=== PATIENT | female | born 2000 | race Caucasian/White ===

== ENCOUNTER 2021-02-17 16:11 | Emergency (ER) | payer OTHER, SELFPAY ==
--- NOTE | ~2021-02-17 | CT_ITS ---
EXAMINATION: CT soft tissue neck w con DATE: 02/17/2021 19:04 INDICATION: Sore throat with erythema and edema. Assess for peritonsillar abscess. TECHNIQUE: Computed tomography (CT) of the neck was performed with 75 mL Omnipaque-350 intravenous co ntrast. Automated exposure control and iterative reconstruction technique were employed. The dose-israel gth product was 255.81 mGy-cm. COMPARISON: None FINDINGS: There is asymmetric swelling of the right palatine tonsil and to lesser degree right lingual tonsil. There is decreased attenuation consistent with likely phlegmonous change without a well-defined small peripheral enhancement to suggest a more organized abscess. Airway remains patent. Normal epiglottis and aryepiglottic folds. The retropharyngeal soft tissues also remain normal. The orbits, paranasal sinuses and mastoid air cells are normal. There is an enlarged right level 2 jugular chain lymph node measuring 1.3 cm in maximal diameter which is likely reactive. Remaining cervical lymph nodes remain within normal limits. Bilateral parotid and submandibular glands are normal and symmetric. Thyroid i s unremarkable. The visualized vasculature of the neck is normal. Superior mediastinum is normal. Vis ualized apices of lungs are clear. Bones are unremarkable. IMPRESSION: 1. Enlargement of the right palatine and lingual tonsils with regions of decreased density likely rep resenting phlegmonous change in the setting of tonsillitis but without an as yet organized peripheral ly enhancing abscess. Reviewed, dictated and finalized at location A. CATED DRIVER IMPRESSION: 1. Enlargement of the right palatine and lingual tonsils with regions of decrea sed density likely representing phlegmonous change in the setting of tonsilliti s but without an as yet organized peripherally enhancing abscess.
[2021-02-17 16:20] VITALS: BP 109/66; PULSE 97; RESP 18; TEMP 36.9; O2SAT 100
[2021-02-17 18:10] VITALS: BP 107/73; PULSE 94; RESP 18; O2SAT 98
--- NOTE | 2021-02-17 18:12 | ED.SKABFB ---
HPI - Skin/Abscess/Foreign Bdy General Chief complaint: Skin/Abscess/Foreign Body Stated complaint: SORE THROAT Time Seen by Provider: 02/17/21 18:05 Source: patient Mode of arrival: ambulatory Limitations: no limitations History of Present Illness HPI narrative: This is a 20-year-old female that presents to the emergency department for sore throat since yesterday. Reports redness and swelling on the right side of her throat. Reports twice recently she has had to have a peritonsillar abscess drained. Initially she finished a round of Augmentin. Most recently she has been on clindamycin. Denies fever. Related Data Home Medications Medication Instructions Recorded Confirmed norethindrone (contraceptive) mg 02/17/21 Allergies Allergy/AdvReac Type Severity Reaction Status Date / Time No Known Allergies Allergy Verified 02/17/21 18:11 Review of Systems Review of Systems: CONSTITUTIONAL: Denies fever ENT: Reports sore throat RESPIRATORY: Denies dyspnea. All systems reviewed & are unremarkable except as noted in HPI and below PMFSH Past Medical History Medical History (Updated 02/17/21 @ 20:42 by Mary Kate Pulliam PA-C) No active medical problems Social History Social History (Updated 02/17/21 @ 18:15 by Mary Kate Pulliam PA-C) Smoking status: Never smoker Exam Narrative: GENERAL: Well-appearing, well-nourished, and in no acute distress. HEAD: Normocephalic, atraumatic. EYES: EOMI. ENT: Nares clear, no rhinorrhea or epistaxis. Mucous membranes moist. Oropharynx with asymmetric (R>L) tonsillar hypertrophy, no exudate or other lesions. Uvula midline. No trismus. Bilateral TMs pearly prater non-bulging NECK: Supple. Tender right-sided anterior cervical adenopathy CHEST: Clear to auscultation. No respiratory distress. No wheezes rales or rhonchi HEART: Regular rate and rhythm. No murmur heard. Normal peripheral pulses. EXTREMITIES: Normal range of motion. No edema. SKIN: Warm, dry, no rash. NEURO: No focal deficits. Alert and oriented x3. PSYCH: Normal mood and affect Course Consultations Consultation #1: Spoke with Dr. Bucio about patient and work-up. Would like patient started on clindamycin will follow up in clinic tomorrow Date: 02/17/21 Time: 20:00 Vital Signs Vital signs: Vital Signs Temperature 98.4 F 02/17/21 16:20 Pulse Rate 97 02/17/21 16:20 Respiratory Rate 18 02/17/21 16:20 Blood Pressure 109/66 02/17/21 16:20 Pulse Oximetry 100 02/17/21 16:20 Temperature 98.0 F 02/17/21 19:49 Pulse Rate 90 02/17/21 19:49 Respiratory Rate 16 02/17/21 19:49 Blood Pressure 108/72 02/17/21 19:49 Pulse Oximetry 98 02/17/21 19:49 MDM - Skin/Abscess/Foreign Bdy MDM Narrative Medical decision making narrative: Patient presents to the emergency department for sore throat since yesterday. History of recent multiple peritonsillar abscesses. She is afebrile and nontoxic-appearing. She does have asymmetric swelling of her tonsils. Uvula is midline. There is no trismus. CBC with leukocytosis to 13.1. Inflammatory markers are mildly elevated. CT scan soft tissue neck shows enlargement of the right [place] and lingual tonsils with regions of decreased density likely representing phlegmonous change, in the setting of tonsillitis without an yet organized peripherally enhancing abscess. Patient given a dose of antibiotics IV. Spoke with Dr. Bucio about patient and work-up. Would like patient started on clindamycin will follow up in clinic tomorrow. Patient is stable and felt appropriate for further outpatient evaluation. She was given warnings to return to the ER Lab Data Attestation: I reviewed the patient's lab results. Result diagrams: 02/17/21 18:24 02/17/21 18:24 Labs: Lab Results 02/17/21 02/17/21 Range/Units 18:24 18:24 WBC 13.1 H (4.5-10.0) K/mm3 RBC 3.73 L (4.2-5.4) M/mm3 Hgb 12.0 (12.0-15.0) g/dL Hct 35.
[2021-02-17 18:30] LABS: Basophils Percent Auto 0.3 % (0.2-1.2); Eosinophils Percent Auto 0.3 % (0-4.4); Hematocrit 35.8 % (37.0-47.0); Immature Granulocyte Absolute 0.04 K/mm3 (0.00-0.031); Immature Granulocyte Percent A 0.3 % (0-0.5); Lymphocytes Absolute Auto 1.21 K/mm3 (0.9-3.2); Lymphocytes Percent Auto 9.3 % (18.3-44.2); Mean Corpuscular HGB Conc 33.5 g/dl (32-36); Mean Corpuscular Hemoglobin 32.2 pg (26-34); Mean Platelet Volume 9.7 fl (7.4-10.4); Monocytes Absolute Auto 1.1 K/mm3 (0.1-0.6); Monocytes Percent Auto 8.6 % (2.6-8.5); Neutrophils Absolute Auto 10.6 K/mm3 (1.3-6.7); Neutrophils Percent Auto 81.2 % (45.5-73.1); Platelet Count Result 202 k/mm3 (150-375); Red Blood Count 3.73 M/mm3 (4.2-5.4); White Blood Count 13.1 K/mm3 (4.5-10.0)
[2021-02-17 18:44] LABS: Anion Gap 8 mmol/L (8-16); Blood Urea Nitrogen 11 mg/dL (8-21); CRP 1.2 mg/dL (<1.0); Calcium 9.7 mg/dL (8.9-10.7); Carbon Dioxide 26 mmol/L (22-30); Chloride 104 mmol/L (98-107); Estimated Glomerular Filt Rate > 60; Glucose 92 mg/dL (65-110); Potassium 3.5 mmol/L (3.4-5.0); Sodium 138 mmol/L (134-143)
[2021-02-17 18:57] LABS: Erythrocyte Sedimentation Rate 21 mm/hr (0-20)
[2021-02-17] MEDS: AMPICILLIN SULB 3 GM/NS 100 ML 3 GM/100 ML VIAL IVPB (19:46)
[2021-02-17 19:49] VITALS: BP 108/72; PULSE 90; RESP 16; TEMP 36.7; O2SAT 98
--- NOTE | 2021-02-17 19:53 | PC.NURSE ---
Per ZOEY Hartmann, ok to give unasyn IVPB as ordered.
--- NOTE | 2021-02-17 21:07 | PC.NURSE ---
Pt refused IM decadron prior to d/c.
== END 2021-02-17 21:15 | disposition home or self-care (01) ==
PROVIDERS: Physician Assistant; Emergency Provider Emergency Medicine; PCP Physician Assistant
DX: J36 Peritonsillar abscess (principal)
CPT/HCPCS: 36415; 70491; 80048; 81025; 85025; 85652; 86140; 87081; 87880; 96365; 99284; J0295; Q9967

== ENCOUNTER → 2021-06-01 00:01 | Outpatient (CLI) | payer OTHER, SELFPAY ==
[2021-06-01 11:43] LABS: SARS-CoV-2 RNA PCR Negative
== END ==
PROVIDERS: PCP Physician Assistant; Visit Provider Otolaryngology
DX: Z01.812 Encounter for preprocedural laboratory examination (principal); Z20.822 Contact with and (suspected) exposure to COVID-19
CPT/HCPCS: C9803; U0003; U0005

== ENCOUNTER 2021-06-04 00:10 | Day surgery (SDC) | payer OTHER, SELFPAY ==
[2021-05-27 15:32] VITALS: BMI 17.4
--- NOTE | 2021-05-27 15:47 | PC.NURSE ---
Report to the Outpatient Waiting Room, entrance under the green pavilion located off [facility], at time 0630 on date 06/04/21. OR Time: 0830. - You and your visitor will be asked a series of questions to screen for COVID 19 for your protection. - A mask is required within the hospital. Preoperative COVID Testing Requirements: No COVID Test needed if: (proof is required; if not received patient will have Rapid Test prior to entry) - Patient has received COVID Vaccine at least 14 days prior to procedure date or - Patient has positive COVID test result within last 90 days of surgery date. COVID Test needed if above criteria is not met If not COVID vaccinated a COVID test must be conducted within 72 hours of surgery and patient is asked to isolate self from time of testing until procedure. You will go to the [facility] for your COVID testing. The [facility] site is located at the corner of [address] [facility]. 06/01/21 @ 3345 You will only be called if COVID results are positive and your surgeon may reschedule your elective surgery date. Patients may have clear liquids (water, carbonated beverages, clear teas, apple juice) until 3 hours prior to surgery with a maximum of 20 ounces. - No food from midnight until time of surgery - Infants may have breast milk until 4 hours before surgery, formula 6 hours prior to surgery. - Children will be allowed to drink immediately following surgery. If applicable, please bring a bottle or sippy cup to assist with drinking. Juice, water, soda, and popsicles are readily available. For infants on formula, please bring formula the day of surgery. Pacifiers are allowed. Take the following medications with a SIP of water the morning of surgery: N/A Medications to discontinue per physician N/A Date to take last dose N/A Please no make-up, nail [place], hairspray, perfume, deodorant, or body powder the day of surgery. No jewelry (including any body piercings) or valuables the day of surgery, leave them at home. Please take a shower or bath the night before, or the morning of, surgery with an antibacterial soap. Wear comfortable, loose fitting clothing. Children are encouraged to wear pajamas. - Jewelry must be removed prior to entering the operating room. Rings and piercings that are not removed may be cut off. - The hospital will not accept responsibility for valuables. - Please leave all valuables, including medications, at home the day of surgery. If you are going home after surgery, a licensed roll off driver must drive you home. - NO public transportation without another adult. - We recommend that an adult stay with you for 24 hours following discharge. - We also recommend that you do not drive, make important decision, drink alcoholic beverages, or take any drugs that were not prescribed by your health care provider for at least 24 hours after your discharge time. For Pediatric surgeries, we recommend two adults accompany the child home (only one inside the building at this time). One visitor will be allowed to accompany the patient into the hospital. Patients visitor will be instructed to remain with patient at all times or leave the building. We will allow the visitor to come back to the postoperative area when patient is ready. Follow any additional instructions given to you from your surgeon. Telephone instructions given to ASHLY SIEGEL and asked if any additional questions and then verbalized understanding. Patient advised to call surgeon office or pre surgery nurse liaison [phone] if any additional questions.
--- NOTE | 2021-06-03 06:02 | PM.HPGS ---
History of Present Illness History of Present Illness Consent: Risks, benefits, and alternatives have been discussed and questions answered. Patient agrees to proceed with procedure. Chief complaint: jesus tonsilar abscess Narrative: Yris Funez is a 20 year old female had several peritonsillar abscesses and episodes of tonsillitis admitted for tonsillectomy Review of Systems Review of Systems: All systems reviewed & are unremarkable except as noted in HPI and below PMFSH Family History Family History Father Heart disease Mother Hypertension Cerebrovascular accident Social History Social History Smoking status: Never smoker Tobacco type: e-cigarettes/vaping Alcohol intake: never Substance use: current Substance use type: marijuana Other substance usage details: USES MARIJUANA 2X/WEEK Spiritual care concerns: No Comments past medical surgical family social history all unremarkable Meds Home Medications and Allergies Home Medications Medication Instructions Recorded Confirmed Type methylprednisolone 4 mg PO DAILY 05/27/21 05/27/21 History Allergies Allergy/AdvReac Type Severity Reaction Status Date / Time nut - unspecified Allergy Unknown Verified 05/27/21 16:26 wheat Allergy Unknown Verified 05/27/21 16:26 Exam Narrative: chest clear heart without murmurs abdomen soft extremities -3+ tonsils Assessment and Plan Additional Plan planus a tonsillectomy
--- NOTE | 2021-06-03 06:06 | PM.HPGS ---
History of Present Illness History of Present Illness Consent: Risks, benefits, and alternatives have been discussed and questions answered. Patient agrees to proceed with procedure. Chief complaint: jesus tonsilar abscess Narrative: Yris Funez is a 20 year old female recurrent episodes of peritonsillar abscess and tonsillitis been on multiple courses of antibiotics PMF Family History Family History Father Heart disease Mother Hypertension Cerebrovascular accident Social History Social History Smoking status: Never smoker Tobacco type: e-cigarettes/vaping Alcohol intake: never Substance use: current Substance use type: marijuana Other substance usage details: USES MARIJUANA 2X/WEEK Spiritual care concerns: No Meds Home Medications and Allergies Home Medications Medication Instructions Recorded Confirmed Type methylprednisolone 4 mg PO DAILY 05/27/21 05/27/21 History Allergies Allergy/AdvReac Type Severity Reaction Status Date / Time nut - unspecified Allergy Unknown Verified 05/27/21 16:26 wheat Allergy Unknown Verified 05/27/21 16:26 Exam Narrative: 3+ tonsils chest clear heart murmurs abdomen soft extremities negati
--- NOTE | 2021-06-03 06:06 | PM.HPGS ---
History of Present Illness History of Present Illness Consent: Risks, benefits, and alternatives have been discussed and questions answered. Patient agrees to proceed with procedure. Chief complaint: jesus tonsilar abscess Narrative: Yris Funez is a 20 year old female with recurrent episodes of peritonsillar abscess treated various courses of antibiotics PMFSH Family History Family History Father Heart disease Mother Hypertension Cerebrovascular accident Social History Social History Smoking status: Never smoker Tobacco type: e-cigarettes/vaping Alcohol intake: never Substance use: current Substance use type: marijuana Other substance usage details: USES MARIJUANA 2X/WEEK Spiritual care concerns: No Meds Home Medications and Allergies Home Medications Medication Instructions Recorded Confirmed Type methylprednisolone 4 mg PO DAILY 05/27/21 05/27/21 History Allergies Allergy/AdvReac Type Severity Reaction Status Date / Time nut - unspecified Allergy Unknown Verified 05/27/21 16:26 wheat Allergy Unknown Verified 05/27/21 16:26 Assessment and Plan Additional Plan plan tonsillectomy
--- NOTE | 2021-06-03 14:02 | P.PNAN_ITS ---
Anes - Initial Pre Proc Eval Procedure: Operation Date: 06/04/21 09:15 Proposed Procedures p Tonsillectomy - Doni Bucio MD Date/Time: 06/03/21 14:02 Surgeon: Doni Bucio MD Pre Op Diagnosis: jesus tonsilar abscess Patient Data Age: 20 Gender: F Height: 1.73 m Weight: 52.16 kg Allergies Allergy/AdvReac Type Severity Reaction Status Date / Time nut - unspecified Allergy Unknown Verified 06/04/21 07:25 wheat Allergy Unknown Verified 06/04/21 07:25 Home Medications Medication Instructions Recorded Confirmed Type norethindrone (contraceptive) 0.35 mg PO DAILY 06/04/21 06/04/21 History Patient hx anesthesia problems: none Family hx anesthesia problems: none Results Review: All pre-operative results and documents have been reviewed as part of the pre-operative evaluation. [facility] Family History Family History Father Heart disease Mother Hypertension Cerebrovascular accident Social History Social History Smoking status: Never smoker Tobacco type: e-cigarettes/vaping Alcohol intake: never Substance use: current Substance use type: marijuana Other substance usage details: USES MARIJUANA 2X/WEEK Living arrangements: alone Spiritual care concerns: No Anes - Eval Final PreProcedure Day of Procedure 06/03/21 14:02 Patient weight: normal Heart: regular rate and rhythm Lungs: clear to auscultation and normal air movement Airway: Mallampati scale class II Neurological: alert and oriented Last oral intake: >/= 8 hours ASA classification: II Emergent: no Anesthetic plan: proceed Anesthesia type and monitoring: general ETT Results Review: All pre-operative results and documents have been reviewed as part of the pre-operative evaluation. Informed Consent: The patient's anesthetic plan and its attendant risks and benefits were discussed with the patient/family/POA. Questions were solicited and answers provided to the satisfaction of the patient/family/POA.
[2021-06-04] VITALS (7 sets, daily range): BP systolic 102–124; BP diastolic 60–83; PULSE 62–100; RESP 12–18; TEMP 36.5–36.8; O2SAT 100
--- NOTE | 2021-06-04 06:31 | WPDHPUPDATE1 ---
History and Physical Update Update Date/Time: 06/04/21 06:31 History and Physical has been reviewed, including an updated exam of the patient. There are NO changes in the patient's condition. Risks, benefits, and alternatives have been discussed and questions answered. Patient agrees to proceed with procedure.
[2021-06-04] MEDS: ACETAMINOPHEN 500 MG TABLET 1000 MG PO (07:27)
[2021-06-04] MEDS: LACTATED RINGERS 1,000 ML 30 ML IV CONT (07:48)
--- NOTE | 2021-06-04 09:41 | W.PM.PROC2 ---
Procedure Note - Detailed Date of Procedure 06/04/21 Pre-op Diagnosis jesus tonsilar abscess tonsillectomy Post-op Diagnosis Same Procedure Performed Tonsillectomy Surgeon Doni Bucio MD Anesthesia General Description of Procedure Patient was prepped and draped in usual fashion after induction of anesthesia. The [place] mouth gag was inserted. The tonsils were removed dissection technique hemostasis was obtained electrocautery. The mouth was inspected for bleeding. When stabilized patient was awaken and brought to the recovery room in good condition. Drains No Packing No Pathology None sent Complications No immediate complications Condition Stable Disposition PACU
[2021-06-04] MEDS: fentaNYL CITRATE INJ (*CRX) 100 MCG/2 ML VIAL 25 MCG IV PUSH ×2 (10:00→10:07)
== END 2021-06-04 11:05 | disposition home or self-care (01) ==
PROVIDERS: PCP Physician Assistant; Visit Provider Otolaryngology
PROC: (CPT 42826; principal; 2021-06-04 09:15)
DX: J35.1 Hypertrophy of tonsils (principal); F12.90 Cannabis use, unspecified, uncomplicated
CPT/HCPCS: 42826; 88302; A9270; J0330; J1100; J2250; J2405; J2704; J3010; J7120